=== PATIENT | female | born 1975 | race Caucasian/White ===

== ENCOUNTER 2017-02-05 10:03 | Emergency (ER) ==
[2017-02-05 10:19] VITALS: BP 152/97; TEMP 98.4; BMI 37.2
--- NOTE | 2017-02-05 10:56 | DI ---
EXAM: Radiographs, right elbow HISTORY: Right elbow pain. COMPARISON: None available. TECHNIQUE: 3 views. FINDINGS: Bone mineralization is normal. There is no fracture or dislocation. The joint spaces ar e maintained. No focal soft tissue abnormality is seen. IMPRESSION: No fracture or dislocation.
--- NOTE | 2017-02-05 11:16 | ED.PDOC ---
General ED Provider: Dr. EMY FORREST Chief Complaint: Extremity Pain/Injury Stated Complaint: elbow pain right Time Seen by Physician: 10:00 Mode of Arrival: Walk-In Information Source: Patient Exam Limitations: No limitations Primary Care Provider: TATY STARK Nursing and Triage Documentation Reviewed and Agree: Yes Musculoskeletal Complaint Exam - Elbow Pain Complaint/Exam Mechanism of Injury: Reports: Trauma Onset/Duration: blunt forece this morning Symptoms Are: Still present Onset of Pain: Reports: Hours Initial Severity: Moderate Current Severity: Mild Character: Reports: Dull Alleviating: Reports: None Aggravating: Reports: None Associated Signs and Symptoms: Denies: Swelling, Redness, Bruising, Fever, Weakness, Numbness, Tingling Related Surgical History: Reports: None Tenderness: Present: Lateral Condyle, Olecranon Differential Diagnoses: Closed Fracture, Sprain, Strain Review of Systems - Review Of Systems Constitutional: Reports: No symptoms Eyes: Reports: No symptoms Ears, Nose, Mouth, Throat: Reports: No symptoms Respiratory: Reports: No symptoms Cardiac: Reports: No symptoms GI: Reports: No symptoms : Reports: No symptoms Musculoskeletal: Reports: Joint pain (right elbow) Skin: Reports: No symptoms Neurological: Reports: No symptoms Endocrine: Reports: No symptoms Hematologic/Lymphatic: Reports: No symptoms All Other Systems: Reviewed and Negative Past Medical History - Past Medical History Endocrine: Reports: None Cardiovascular: Reports: None Respiratory: Reports: None Hematological: Reports: None Gastrointestinal: Reports: None Genitourinary: Reports: None Neuro/Psych: Reports: None Musculoskeletal: Reports: None Cancer: Reports: None Last Menstrual Period: last week - Surgical History General Surgical History: Reports: Unknown - Family History Family History: Reports: Unknown - Social History Smoking Status: Current every day smoker, Light tobacco smoker Hx Substance Use: No Alcohol Screening: None Physical Exam - Physical Exam Appearance: Well-appearing, No pain distress, Well-nourished Eyes: RAFAEL, EOMI, Conjunctiva clear ENT: Ears normal, Nose normal, Oropharynx normal Respiratory: Airway patent, Breath sounds clear, Breath sounds equal, Respirations nonlabored Cardiovascular: RRR, Pulses normal, No rub, No murmur GI/: Soft, Nontender, No masses, Bowel sounds normal, No Organomegaly Musculoskeletal: Normal strength, ROM intact, No edema, No calf tenderness Skin: Warm, Dry, Normal color Neurological: Sensation intact, Motor intact, Reflexes intact, Cranial nerves intact, Alert, Oriented Psychiatric: Affect appropriate, Mood appropriate Interpretation - Radiology Interpretation Radiology Interpretation By: Radiologist Radiology Results: No acute changes Critical Care Note - Critical Care Note Total Time (mins): 0 Course - Course Orders, Labs, Meds: Orders Category Date Time Status ELBOW, RIGHT MIN 3 VIEWS Stat RADS 02/05/17 10:20 Completed Vital Signs: Temp Pulse Resp BP Pulse Ox 02/05/17 10:04 98.4 F 80 20 152/97 H 98 Departure - Departure Time of Disposition: 11:15 Disposition: HOME SELF-CARE Discharge Problem: Sprain of right elbow Qualifiers: Encounter type: initial encounter Qualifier Code: (S53.401A) Unspecified sprain of right elbow, initial encounter Instructions: Elbow Sprain (ED) Condition: Good Pt referred to PMD for follow-up: No Additional Instructions: Please call your Family Physician as soon as possible to schedule a follow-up appointment. Allergies/Adverse Reactions: Allergies propoxyphene napsylate [From Darvocet-N 100] Adverse Reaction (Verified 10:08) Home Medications: Ambulatory Orders Clonazepam [Klonopin] 1 mg PO QID PRN 06/16/13 Dextroamphetamine/Amphetamine [Adderall 20 mg Tablet] 20 mg PO BID 02/15/14
== END 2017-02-05 11:55 | disposition home or self-care (01) ==
LOC: ED 10:03
DX: S53.401A Unspecified sprain of right elbow, initial encounter (principal); W22.8XXA Striking against or struck by other objects, initial encounter; F17.210 Nicotine dependence, cigarettes, uncomplicated
CPT/HCPCS: 99283

== ENCOUNTER 2017-03-03 07:07 | Outpatient (CLI) ==
--- NOTE | 2017-03-03 13:43 | MRI ---
EXAM: MRI of the right elbow without contrast. COMPARISON: Right elbow radiographs 02/05/2017. HISTORY: Right elbow pain after the elbow popped with a dog pulled on a leash. TECHNIQUE: Multiplanar noncontrast MR images of the right elbow were acquired using a 1.2 Gretchen mag net. Several sequences limited by patient motion artifact most pronounced on the coronal T2W fat sat uration sequence. The technologist performing the study notes that multiple sequences were repeated and the best possible quality images were obtained given the patient's condition. FINDINGS: There is no evidence of an acute fracture, osteomyelitis or marrow infiltrating process. Small elbow effusion, nonspecific. Moderate joint space narrowing degenerative spurring at the uln ohumeral articulation with mild degenerative changes of the radiocapitellar articulation. There is marked common extensor tendinosis with a high-grade partial/near-complete tear of the commo n extensor tendon at its lateral epicondyle attachment with only thin residual intact fibers remaini ng. Edema throughout the overlying soft tissues. Sprain with scarring of the underlying radial col lateral ligament without a discrete full-thickness tear on this non arthrographic study. Mild common flexor tendinosis without evidence of a tear. No evidence of a full-thickness tear of t he ulnar collateral ligament on this non arthrographic study. Thickening and T2 hyperintense signal along the ulnar nerve within the cubital tunnel and correlation for signs of ulnar neuritis/neuropa thy is recommended. The nerve is perched along the posterior aspect of the medial epicondyle at silvia t level. Mild muscle atrophy. Mild distal triceps and biceps tendinosis without a tendon tear. Distal brachialis tendon is intact . IMPRESSION: 1. Lateral epicondylitis with marked tendinosis and high-grade partial/near-complete tear of the co mmon extensor tendon at its lateral epicondyle attachment. There appear to be only thin residual in tact fibers remaining. 2. Mild chronic sequela of medial epicondylitis. 3. Thickening and hyperintense signal of the ulnar nerve at the cubital tunnel and correlation for signs of ulnar neuropathy/neuritis is recommended. The nerve is perched along the posterior aspect of the medial epicondyle. 4. Sprain with scarring of the radial collateral ligament without a full-thickness tear on this non arthrographic study. 5. Minimal distal biceps and triceps tendinosis without a tendon tear. 6. No acute osseous abnormality. Mild to moderate degenerative changes of the elbow. Small joint effusion.
== END 2017-03-03 07:08 | disposition home or self-care (01) ==
LOC: RAD 07:07
PROVIDERS: ATTEND Family Medicine
DX: M25.521 Pain in right elbow (principal)

== ENCOUNTER 2018-05-11 22:09 | Emergency (ER) ==
[2018-05-11 22:19] VITALS: BP 153/110; TEMP 98.3; BMI 37.3
[2018-05-11] MEDS ORDERED: TORADOL IM STA (22:56)
--- NOTE | 2018-05-11 22:59 | ED.PDOC ---
General ED Provider: Dr. LISHA REEVES Chief Complaint: Back Pain Stated Complaint: Lower back pain left side onset 3 days, gradually getting worse. Pain does not radiate to left leg Time Seen by Physician: 22:57 Mode of Arrival: Walk-In Information Source: Patient Primary Care Provider: TATY STARK Nursing and Triage Documentation Reviewed and Agree: Yes Does patient meet sepsis criteria?: No If yes, has appropriate treatment been initiated?: No System Inflammatory Response Syndrome: Not Applicable Sepsis Protocol: For patient's 13 years and over: Temp is 96.8 and below OR 101 and greater Pulse >90 BPM Resp >20/minute Acutely Altered Mental Status Are patient's symptoms suggestive of a new infection, such as: -Pneumonia -Skin, Soft Tissue -Endocarditis -UTI -Bone, Joint Infection -Implantable Device -Acute Abdominal Infection -Wound Infection -Meningitis -Blood Stream Catheter Infection -Unknown Musculoskeletal Complaint Exam - Back Pain Complaint/Exam Mechanism of Injury: Reports: No known trauma Symptoms Are: Still present Timing: Constant Episodes Lasting: Minutes Initial Severity: Moderate Current Severity: Moderate Location: Reports: Discrete Character: Reports: Aching, Throbbing, Unable to describe Alleviating: Reports: None Associated Signs and Symptoms: Denies: Swelling, Redness, Bruising, Fever, Weakness, Numbness, Tingling, Abdominal pain, Flank pain, Bladder incontinence, Bowel incontinence, Weight loss, Pain with weight bearing TAD Risk Factors: Reports: None AAA Risk Factors: Reports: None Cauda Equina Risk Factors: Reports: None Epidural Abcess Risk Factors: Reports: None Related Surgical History: Reports: None Focal Tenderness: Yes Paraspinal Muscle Tenderness: Yes Paraspinal Muscle Spasm: Yes Scoliosis: No Lordosis: No Kyphosis: No SLR Test: Right Negative, Left Negative Hip Motion Testing Pain: Right Negative, Left Negative Focal Weakness: Present: None Focal Sensory Loss: Present: None Gait: Present: Normal Differential Diagnoses: Fracture, Strain Review of Systems - Review Of Systems Constitutional: Reports: No symptoms Eyes: Reports: No symptoms Ears, Nose, Mouth, Throat: Reports: No symptoms Respiratory: Reports: No symptoms Cardiac: Reports: No symptoms GI: Reports: No symptoms : Reports: No symptoms Musculoskeletal: Reports: Back pain Skin: Reports: No symptoms Neurological: Reports: No symptoms Endocrine: Reports: No symptoms Hematologic/Lymphatic: Reports: No symptoms All Other Systems: Reviewed and Negative Past Medical History - Past Medical History Previously Healthy: Yes Endocrine: Reports: None Cardiovascular: Reports: None Respiratory: Reports: None Hematological: Reports: None Gastrointestinal: Reports: None Genitourinary: Reports: None Neuro/Psych: Reports: None Musculoskeletal: Reports: None Cancer: Reports: None Last Menstrual Period: MARCH 30, 2018 - Surgical History General Surgical History: Reports: Unknown - Family History Family History: Reports: Unknown - Social History Smoking Status: Former smoker Hx Substance Use: Yes Alcohol Screening: None - Immunizations Tetanus Shot up to Date: Yes Physical Exam - Physical Exam Appearance: Well-appearing, Obese Pain Distress: Moderate Eyes: RAFAEL, EOMI, Conjunctiva clear ENT: Ears normal, Nose normal, Oropharynx normal Respiratory: Airway patent, Breath sounds clear, Breath sounds equal, Respirations nonlabored Cardiovascular: RRR, Pulses normal, No rub, No murmur GI/: Soft, Nontender, No masses, Bowel sounds normal, No Organomegaly Musculoskeletal: Normal strength, ROM intact, No edema, No calf tenderness Skin: Warm, Dry, Normal color Neurological: Sensation intact, Motor intact, Reflexes intact, Cranial nerves intact, Alert, Oriented Psychiatric: Affect appropriate, Mood appropriate Critical Care Note - Critical Care Note Total Time (mins): 30 Course - Course Orders, Labs, Meds: Orders Category Date Time Status Ketorolac Tromethamine [Toradol] MEDS 05/11/18 22:56 Stat 60 mg IM ONCE STA LUMBAR SPINE, 2 OR 3 VIEWS Stat RADS 05/11/18 22:56 Ordered Vital Signs: Temp Pulse Resp BP Pulse Ox 05/11/18 22:10 98.3 F 85 20 153/110 H 97 Departure - Departure Time of Disposition: 23:00 Disposition: HOME SELF-CARE Discharge Problem: Backache Condition: Stable Pt referred to PMD for follow-up: Yes IPMP verified?: No Additional Instructions: Rest Hot pack f/u with PMD in 3-4 days Prescriptions: Cyclobenzaprine HCl [Flexeril] 5 mg PO BID #14 tablet Prednisone 10 mg PO BIDWM #14 tablet Allergies/Adverse Reactions: Allergies propoxyphene napsylate [From Darvocet-N 100] Adverse Reaction (Verified 22:16) Home Medications: Ambulatory Orders Clonazepam [Klonopin] 1 mg PO BID 06/16/13 Dextroamphetamine/Amphetamine [Adderall 20 mg Tablet] 20 mg PO BID 02/15/14 Cyclobenzaprine HCl [Flexeril] 5 mg PO BID #14 tablet 05/11/18 Prednisone 10 mg PO BIDWM #14 tablet 05/11/18 Disposition Discussed With: Patient
[2018-05-11] MEDS ORDERED: DEMEROL 50 MG/ML VIAL IM STA (23:26)
[2018-05-11] MEDS ORDERED: DEMEROL 50 MG/ML VIAL ONE (23:27)
--- NOTE | 2018-05-12 00:48 | DI ---
EXAM: Lumbar spine three views HISTORY: Back pain COMPARISON: None. FINDINGS: The vertebral bodies are normal in height and alignment. There is no acute fracture or in tervertebral disc space narrowing. IMPRESSION: No acute findings.
== END 2018-05-12 00:23 | disposition home or self-care (01) ==
LOC: ED 22:09
DX: M54.5 Low back pain (principal)
CPT/HCPCS: 81025; 96372; 99283

== ENCOUNTER 2018-08-19 09:37 | Outpatient (CLI) ==
--- NOTE | 2018-08-19 12:23 | DI ---
EXAM: Radiographs, chest and bilateral rib HISTORY: Chest pain. COMPARISON: Chest radiograph 07/20/2016. TECHNIQUE: Nine total images. FINDINGS: Heart size is normal. Lungs are clear without pleural effusion or pneumothorax. Lucency within the inferior aspect of the right anterior eighth rib is seen on final image. Otherwise, there is no rib fracture or other acute osseous abnormality is identified. IMPRESSION: 1. Question nondisplaced right anterior eighth rib fracture. Correlate with site of pain. 2. No acute cardiopulmonary process.
== END 2018-08-19 09:38 | disposition home or self-care (01) ==
LOC: RAD 09:37
PROVIDERS: ATTEND Family Medicine
DX: R07.89 Other chest pain (principal)

== ENCOUNTER 2018-09-15 03:40 | Emergency (ER) ==
[2018-09-15 04:04] VITALS: BP 165/101; TEMP 99.2; BMI 35.4
--- NOTE | 2018-09-15 05:29 | CT ---
EXAM: CT brain without contrast HISTORY: Syncope TECHNIQUE: CT of the brain without intravenous contrast FINDINGS: There is no acute hemorrhage midline shift or mass effect. No hydrocephalus or abnormal e xtra-axial fluid collection. No significant parenchymal attenuation abnormality. The bony cranium a ppears normal. Mucoperiosteal thickening of the ethmoid sinuses. Remainder of the visualized paranas al sinuses are clear. Soft tissues without significant abnormality. IMPRESSION: 1. No intracranial abnormality. 2. Mucoperiosteal thickening of the ethmoid sinuses.
--- NOTE | 2018-09-15 05:54 | ED.PDOC ---
General ED Provider: Dr. TATY STARK-ER Chief Complaint: Syncope Stated Complaint: i passed out at work Time Seen by Physician: 03:45 Mode of Arrival: Wheelchair Information Source: Patient, Other Exam Limitations: No limitations Primary Care Provider: TATY STARK Nursing and Triage Documentation Reviewed and Agree: Yes Does patient meet sepsis criteria?: No System Inflammatory Response Syndrome: Not Applicable Sepsis Protocol: For patient's 13 years and over: Temp is 96.8 and below OR 101 and greater Pulse >90 BPM Resp >20/minute Acutely Altered Mental Status Are patient's symptoms suggestive of a new infection, such as: -Pneumonia -Skin, Soft Tissue -Endocarditis -UTI -Bone, Joint Infection -Implantable Device -Acute Abdominal Infection -Wound Infection -Meningitis -Blood Stream Catheter Infection -Unknown Neurological Complaint Exam - Syncope/Near Syncope Complaint/Exam Onset/Duration: a few sec Symptoms Are: Still present Number of Episodes: 1 Episodes Witnessed: Yes Loss of Consciousness: Yes Associated Head Trauma: No Activity at Onset: At rest Aggravating: None Alleviating: Reports: None Associated Signs and Symptoms: Denies: Pain, Decreased oral intake, Vomiting, Diarrhea, GI blood loss, Short of air, Chest pain, Palpitations, Diaphoresis, Lightheadedness, Dizziness, Weakness, AMS, Numbness, Headache, Seizure, Remote head trauma, Recent head trauma Review of Systems - Review Of Systems Constitutional: Reports: No symptoms Eyes: Reports: No symptoms Ears, Nose, Mouth, Throat: Reports: No symptoms Respiratory: Reports: No symptoms Cardiac: Reports: No symptoms GI: Reports: No symptoms : Reports: No symptoms Musculoskeletal: Reports: No symptoms Skin: Reports: No symptoms Neurological: Reports: No symptoms Endocrine: Reports: No symptoms Hematologic/Lymphatic: Reports: No symptoms All Other Systems: Reviewed and Negative Past Medical History - Past Medical History Previously Healthy: Yes Endocrine: Reports: None Cardiovascular: Reports: None Respiratory: Reports: None Hematological: Reports: None Gastrointestinal: Reports: None Genitourinary: Reports: None Neuro/Psych: Reports: None Musculoskeletal: Reports: None Cancer: Reports: None Last Menstrual Period: 10-6-18 - Surgical History General Surgical History: Reports: Unknown - Family History Family History: Reports: Unknown - Social History Smoking Status: Current every day smoker, Light tobacco smoker Hx Substance Use: Yes Alcohol Screening: None - Immunizations Tetanus Shot up to Date: Yes Physical Exam - Physical Exam Appearance: Well-appearing Eyes: RAFAEL, EOMI, Conjunctiva clear ENT: Ears normal, Nose normal, Oropharynx normal Neck: Supple Respiratory: Airway patent, Breath sounds clear, Breath sounds equal, Respirations nonlabored Cardiovascular: RRR GI/: Soft, Nontender, No masses, Bowel sounds normal, No Organomegaly Musculoskeletal: Normal strength Skin: Warm Neurological: Sensation intact Psychiatric: Affect appropriate Interpretation - Radiology Interpretation Radiology Interpretation By: Radiologist Radiology Results: Negative Exam Interpreted: CT Scan - EKG Interpretation Time of EKG #1: 05:57 Rate: Normal Rhythm: Sinus Ectopy: None Cash: NL ST Segment: Normal Interpretation: nsr Critical Care Note - Critical Care Note Total Time (mins): 0 Course - Course Hematology/Chemistry: 09/15/18 04:30 09/15/18 04:30 Orders, Labs, Meds: Lab Review 09/15/18 09/15/18 09/15/18 04:30 04:30 04:30 WBC 16.72 H RBC 4.08 L Hgb 11.0 L Hct 34.0 L MCV 83.3 MCH 27.0 MCHC 32.4 RDW Coeff of Guzman 14.8 Plt Count 264 Immature Gran % (Auto) 0.6 Neut % (Auto) 73.5 Lymph % (Auto) 14.8 [place] % (Auto) 7.4 Eos % (Auto) 3.2 Baso % (Auto) 0.5 Immature Gran # (Auto) 0.1 Neut # (Auto) 12.3 H Lymph # (Auto) 2.5 [place] # (Auto) 1.2 Eos # (Auto) 0.5 Baso # (Auto) 0.1 Sodium 135.4 L Potassium 4.39 Chloride 100.0 Carbon Dioxide 26.2 Anion Gap 13.59 BUN 20.8 H Creatinine 0.83 Estimated GFR (MDRD) 75.00 BUN/Creatinine Ratio 25.06 Glucose 188.9 H Calcium 9.99 Total Bilirubin 0.31 AST 23.3 ALT 20.8 Alkaline Phosphatase 85.1 Total Creatine Kinase 31.2 Troponin I < 0.012 Total Protein 7.64 Albumin 4.36 Globulin 3.28 Albumin/Globulin Ratio 1.32 Serum , Qual Urine Color Urine Clarity Urine pH Ur Specific [place] Urine Protein Urine Glucose (UA) Urine Ketones Urine Blood Urine Nitrite Urine Bilirubin Urine Urobilinogen Ur Leukocyte Esterase Urine Opiates Screen Ur Oxycodone Screen Urine Methadone Screen Ur Propoxyphene Screen Ur Barbiturates Screen U Tricyclic Antidepress Ur Phencyclidine Scrn Ur Amphetamine Screen U Methamphetamines Scrn U Benzodiazepines Scrn Urine Cocaine Screen U Cannabinoids Screen 09/15/18 09/15/18 09/15/18 04:30 04:50 04:50 WBC RBC Hgb Hct MCV MCH MCHC RDW Coeff of [place] Plt Count Immature Gran % (Auto) Neut % (Auto) Lymph % (Auto) [place] % (Auto) Eos % (Auto) Baso % (Auto) Immature Gran # (Auto) Neut # (Auto) Lymph # (Auto) [place] # (Auto) Eos # (Auto) Baso # (Auto) Sodium Potassium Chloride Carbon Dioxide Anion Gap BUN Creatinine Estimated GFR (MDRD) BUN/Creatinine Ratio Glucose Calcium Total Bilirubin AST ALT Alkaline Phosphatase Total Creatine Kinase Troponin I Total Protein Albumin Globulin Albumin/Globulin Ratio Serum , Qual Negative Urine Color Yellow Urine Clarity Clear Urine pH 5.5 Ur Specific [place] 1.025 Urine Protein Negative Urine Glucose (UA) Negative Urine Ketones Negative Urine Blood Negative Urine Nitrite Negative Urine Bilirubin Negative Urine Urobilinogen 0.2 Ur Leukocyte Esterase Negative Urine Opiates Screen Negative Ur Oxycodone Screen Negative Urine Methadone Screen Negative Ur Propoxyphene Screen Negative Ur Barbiturates Screen Negative U Tricyclic Antidepress Negative Ur Phencyclidine Scrn Negative Ur Amphetamine Screen Negative U Methamphetamines Scrn Negative U Benzodiazepines Scrn Negative Urine Cocaine Screen Negative U Cannabinoids Screen Negative Orders Category Date Time Status EKG-(ED ONLY) Stat CARDIO 09/15/18 04:19 Completed 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] .ONCE EMERGENCY 09/15/18 04:20 Active CBC W/ AUTO DIFF Stat LAB 09/15/18 04:30 Completed COMPREHENSIVE METABOLIC PANEL Stat LAB 09/15/18 04:30 Completed CREATINE KINASE Stat LAB 09/15/18 04:30 Completed FERRITIN Stat LAB 09/15/18 Ordered IRON Stat LAB 09/15/18 Ordered SERUM Stat LAB 09/15/18 04:30 Completed TROPONIN I Stat LAB 09/15/18 04:30 Completed URINALYSIS C & S IF INDICATED Stat LAB 09/15/18 04:50 Completed URINE DRUG SCREEN (RAPID FOR ED) [DRUG SCREEN, URINE, LAB 09/15/18 04:50 Completed RAPID] Stat VITAMIN B12 Stat LAB 09/15/[address] HEAD W/O CONTRAST Stat RADS 09/15/18 04:21 Completed Vital Signs: Temp Pulse Resp BP Pulse Ox 09/15/18 03:40 99.2 F 83 20 165/101 H 98 Departure - Departure Time of Disposition: 05:56 Disposition: HOME SELF-CARE Discharge Problem: Syncope Anemia Qualifiers: Anemia type: unspecified type Qualified Code(s): D64.9 - Anemia, unspecified Instructions: Syncope (ED) Condition: Good Pt referred to PMD for follow-up: Yes IPMP verified?: No Additional Instructions: call my office tomorrow for blood test results Allergies/Adverse Reactions: Allergies propoxyphene napsylate [From Darvocet-N 100] Adverse Reaction (Verified 03:50) Home Medications: Ambulatory Orders Clonazepam [Klonopin] 1 mg PO BID 06/16/13 Dextroamphetamine/Amphetamine [Adderall 20 mg Tablet] 20 mg PO BID 02/15/14 Bupropion HCl [Wellbutrin Xl] 300 mg PO DAILY 09/15/18 Metformin HCl 500 mg PO BID 09/15/18 Disposition Discussed With: Patient
== END 2018-09-15 06:07 | disposition home or self-care (01) ==
LOC: ED 03:40
DX: R55 Syncope and collapse (principal); D64.9 Anemia, unspecified; F17.210 Nicotine dependence, cigarettes, uncomplicated
CPT/HCPCS: 36415; 80053; 80306; 81001; 82550; 82607; 82728; 83540; 84484; 84703; 85025; 93005; 93010; 99283

== ENCOUNTER 2019-02-19 06:19 | Emergency (ER) ==
[2019-02-19 06:27] VITALS: BP 173/113; TEMP 98.4; BMI 37.2
--- NOTE | 2019-02-19 06:40 | ED.PDOC ---
General ED Provider: Dr. TATY STARK-ER Chief Complaint: Elbow Pain/Injury Stated Complaint: i strained my elbow Time Seen by Physician: 06:30 Mode of Arrival: Walk-In Information Source: Patient Exam Limitations: No limitations Primary Care Provider: TATY STARK Nursing and Triage Documentation Reviewed and Agree: Yes Does patient meet sepsis criteria?: No System Inflammatory Response Syndrome: Not Applicable Sepsis Protocol: For patient's 13 years and over: Temp is 96.8 and below OR 101 and greater Pulse >90 BPM Resp >20/minute Acutely Altered Mental Status Are patient's symptoms suggestive of a new infection, such as: -Pneumonia -Skin, Soft Tissue -Endocarditis -UTI -Bone, Joint Infection -Implantable Device -Acute Abdominal Infection -Wound Infection -Meningitis -Blood Stream Catheter Infection -Unknown Musculoskeletal Complaint Exam - Elbow Pain Complaint/Exam Mechanism of Injury: Reports: No known trauma Symptoms Are: Still present Onset of Pain: Reports: Immediate Initial Severity: Mild Current Severity: Mild Location: Reports: Discrete Character: Reports: Dull, Aching Aggravating: Reports: Movement, Twisting, Pulling Associated Signs and Symptoms: Reports: Tingling. Denies: Swelling, Redness, Bruising, Fever, Weakness, Numbness Elbow Findings: Absent: Swelling, Ecchymosis, Abnormal contour, Ligamentous instability, Erythema, Blisters, Other joint pain Limited Range of Motion: Present: Flexion, Extension Differential Diagnoses: Sprain, Strain, Tendonitis Review of Systems - Review Of Systems Constitutional: Reports: No symptoms Eyes: Reports: No symptoms Ears, Nose, Mouth, Throat: Reports: No symptoms Respiratory: Reports: No symptoms Cardiac: Reports: No symptoms GI: Reports: No symptoms : Reports: No symptoms Musculoskeletal: Reports: Joint pain, Muscle pain Skin: Reports: No symptoms Neurological: Reports: No symptoms Endocrine: Reports: No symptoms Hematologic/Lymphatic: Reports: No symptoms All Other Systems: Reviewed and Negative Past Medical History - Past Medical History Previously Healthy: Yes Endocrine: Reports: None Cardiovascular: Reports: None Respiratory: Reports: None Hematological: Reports: None Gastrointestinal: Reports: None Genitourinary: Reports: None Neuro/Psych: Reports: None Musculoskeletal: Reports: None Cancer: Reports: None Last Menstrual Period: 2 weeks - Surgical History General Surgical History: Reports: Unknown - Family History Family History: Reports: Unknown - Social History Smoking Status: Former smoker Hx Substance Use: Yes Alcohol Screening: None - Immunizations Tetanus Shot up to Date: Yes Physical Exam - Physical Exam Appearance: Well-appearing, No pain distress, Well-nourished Pain Distress: Mild Eyes: RAFAEL, EOMI, Conjunctiva clear ENT: Ears normal, Nose normal, Oropharynx normal Neck: Supple Respiratory: Airway patent, Breath sounds clear, Breath sounds equal, Respirations nonlabored Cardiovascular: RRR, Pulses normal, No rub, No murmur GI/: Soft, Nontender, No masses, Bowel sounds normal, No Organomegaly Musculoskeletal: Limited ROM Skin: Warm, Dry, Normal color Neurological: Sensation intact, Motor intact, Reflexes intact, Cranial nerves intact, Alert, Oriented Psychiatric: Affect appropriate, Mood appropriate Interpretation - Radiology Interpretation Radiology Interpretation By: Radiologist Radiology Results: Negative Critical Care Note - Critical Care Note Total Time (mins): 0 Course - Course Orders, Labs, Meds: Orders Category Date Time Status ELBOW, LEFT MIN 3 VIEWS Stat RADS 02/19/19 06:31 Ordered Vital Signs: Temp Pulse Resp BP Pulse Ox 02/19/19 06:22 98.4 F 80 20 173/113 H 97 Departure - Departure Time of Disposition: 06:40 Disposition: HOME SELF-CARE Discharge Problem: Elbow joint pain Instructions: Tennis Elbow (ED) Condition: Good Pt referred to PMD for follow-up: Yes IPMP verified?: No Additional Instructions: stay in splint====contact my office tomorrow to arrange ortho referral Allergies/Adverse Reactions: Allergies propoxyphene napsylate [From Darvocet-N 100] Adverse Reaction (Verified 03:50) Home Medications: Ambulatory Orders Dextroamphetamine/Amphetamine [Adderall 20 mg Tablet] 20 mg PO BID 02/15/14 Bupropion HCl [Wellbutrin Xl] 300 mg PO DAILY 09/15/18 Metformin HCl 500 mg PO BID 09/15/18 Disposition Discussed With: Patient
[2019-02-19] MEDS ORDERED: NORCO 5-325 PO STA (06:43)
--- NOTE | 2019-02-19 07:07 | DI ---
Exam: Left elbow three views HISTORY: Elbow injury and pain status post fall Findings / impression: No significant bony or articular abnormality. Negative exam.
== END 2019-02-19 07:47 | disposition home or self-care (01) ==
LOC: ED 06:19
DX: M25.522 Pain in left elbow (principal)
CPT/HCPCS: 99282

== ENCOUNTER 2019-05-09 13:48 | Outpatient (CLI) ==
[2019-05-09 14:37] LABS: URINE PREGNANCY TEST NEGATIVE (NEGATIVE)
--- NOTE | 2019-05-10 08:01 | DI ---
EXAM: Chest two views HISTORY: Fever tip by COMPARISON: 08/19/2018 TECHNIQUE: Two views of the chest were performed FINDINGS: The lungs are clear. There is no pleural effusion or pneumothorax. The heart is normal i n size. The mediastinal contour is normal. There are no acute abnormalities of the bones. IMPRESSION: No acute cardiopulmonary process.
== END 2019-05-09 13:49 | disposition home or self-care (01) ==
LOC: RAD 13:48
PROVIDERS: ATTEND Family Medicine
DX: R50.9 Fever, unspecified (principal); R05 Cough; W57.XXXA Bitten or stung by nonvenomous insect and other nonvenomous arthropods, initial encounter
CPT/HCPCS: 36415; 80053; 81025; 85025; 87086